=== PATIENT | male | born 1940 | race Caucasian/White ===

== ENCOUNTER → 2020-12-04 | Outpatient (CLI) | payer MEDICARE ==
[~2020-12-04] MED LIST: GLIP10TA24 PO; LISI20TA18 PO; METF-658 PO; METO-247 PO; MULT-245 PO; MV-M1TAB7 PO; SIMV20TA18 PO; TRIA1TAB3 PO; [UNRECOGNIZED DRUG - CODE] PO
[2020-12-07 10:27] VITALS: BP 146/65
== END ==
LOC: LAB 14:54
PROVIDERS: ATTEND Ophthalmology
DX: Z01.812 Encounter for preprocedural laboratory examination (principal); Z20.822 Contact with and (suspected) exposure to COVID-19
CPT/HCPCS: C9803; U0003

== ENCOUNTER → 2020-12-07 | Day surgery (SDC) | payer MEDICARE ==
[~2020-12-07] MED LIST changes: +ACETAMINOPHEN 500 MG TABLET PO PRN; +BALANCED SALT IRRIG SOLN NO.2 500 ML IO ONE; +BENZONATATE 100 MG CAPSULE. PO PRN; +BRIMONIDINE 0.2% OPHTH SOLUTION 5ML BOTTLE. OD ONE; +CEFUROXIME OPHTH 4 MG/0.4 ML SYRINGE. OD ONE; +CHONDROIT-SOD-HYALURONATE KIT. OD ONE; +IBUPROFEN 200 MG TABLET PO PRN; +IPRATRPIUM/ALBUTEROL 0.5/2.5MG 3 ML NEBU. NEB PRN; +IV RINGERS SOLUTION,LACTATED 1,000 ML IV SCH; +LIDO/EPI IN BSS OPHTH 2.7 ML SYRINGE. OD ONE; +MIDAZOLAM HCL PF 2 MG/2 ML VIAL. IV ONE; +MIDAZOLAM HCL PF 2 MG/2 ML VIAL. ONE; +ONDANSETRON PF 4 MG/2 ML VIAL. IV PRN; +PHENYLEPHRINE 10% OPHTH SOLUTION 5ML BOTTLE. OD PRN; +POVIDONE-IODINE 5% OPHTH SOLUTION 30ML BOTTLE. OD ONE; +POVIDONE-IODINE 5% OPHTH SOLUTION 30ML BOTTLE. OD PRN; +PROPARACAINE 0.5% OPHTH SOLUTION 15ML BOTTLE. OD ONE; +PROPARACAINE 0.5% OPHTH SOLUTION 15ML BOTTLE. OD PRN; +prednisoLONE ACETATE 1% OPHTH SUSPENSION 5ML BOTTLE. OD ONE
[2020-12-07] MEDS: TROPICAMIDE 1% OPHTH SOLUTION 15ML BOTTLE. OD SCH ×3 (08:46→08:58)
[2020-12-07] MEDS: PHENYLEPHRINE 2.5% OPHTH SOLUTION 2ML BOTTLE. OD SCH ×3 (08:46→08:58)
[2020-12-07] MEDS: KETOROLAC TROMETHAMINE 0.5% OPHTH SOLUTION BOTTLE. OD SCH ×2 (08:47→08:53)
[2020-12-07] MEDS: TOBRAMYCIN 0.3% OPHTH SOLUTION 5ML BOTTLE. OD SCH ×2 (08:47→08:53)
--- NOTE | 2020-12-07 10:17 | PDOC4 ---
SURGEON: Nicolas Sullivan MD Date of Procedure: 12/07/20 PREOP Diagnosis Visually significant cataract: Right Eye OD POSTOP Diagnosis Same PROCEDURE: Phaco w/ posterior chamber IOL: Right Eye OD ANESTHESIA Deep forniceal periocular 2% Lidocaine jelly [place]/retro bulbar block with 2% Lidocaine with 0.5% Marcaine DESCRIPTION OF PROCEDURE The risks, benefits, and alternatives were discussed with the patient who elected to proceed. Informed consent was obtained in writing and placed in the chart After anesthetizing the eye topically, the patient was taken to the operating room, and the operative eye was prepped and draped in the usual sterile fashion for ocular surgery. A wire lid speculum was placed. A 1-mm clear corneal paracentesis incision was created with the side-port blade at a position three o'clock hours clockwise from the temporal cornea. Then, 1% non-preserved Lidocaine with epinephrine was injected into the anterior chamber followed by viscoelastic. Cotton-tipped applicators were used to stabilize the globe, and a 2.4 mm keratome was used to create a self-sealing incision in clear cornea at the temporal limbus. The Utrata forceps were used to create a continuous curvilinear capsulorrhexis. Balanced saline solution was injected via cannula beneath the capsulorrhexis edge to hydrodissect the lens nucleus and cortex from the lens capsule. The phacoemulsification handpiece and a chopping instrument were then used to remove the lens nucleus. The remaining epinuclear material and cortex were removed with the irrigation/aspiration handpiece. Viscoelastic was used to re-inflate the lens capsule, and the intraocular lens was injected directly into the capsular bag. The corneal wound edges were hydrated with balanced salt solution on a cannula and the irrigation/aspiration handpiece was used to extract the remaining viscoelastic. Cefuroxime 0.1mg/ml / Vigamox 0.5% was injected into the anterior chamber intracamerally. The wounds were inspected and found to be watertight at an appropriate intraocular pressure. Topical antibiotic drops were placed on the corneal surface. LRI: No If Yes, Number [] [place] [] Length [] degrees Depth [] microns Incision [place]: 180 Toric Lens [place] [] Patch/shield with Maxitrol/Tobradex/Erythromycin ointment: Yes No Co-managed patients/postop examination stable for co-management with referring doctor. EBL EBL: None SPECIMANS COLLECTED Specimens Collected: None NICOLAS SULLIVAN MD Dec 07, 2020 10:17
[2020-12-07 10:27] VITALS: BP 146/65
== END | disposition home or self-care (01) ==
LOC: SURG 08:32
PROVIDERS: ATTEND Ophthalmology
DX: E11.36 Type 2 diabetes mellitus with diabetic cataract (principal); H25.11 Age-related nuclear cataract, right eye; I10 Essential (primary) hypertension; Z98.890 Other specified postprocedural states; Z79.899 Other long term (current) drug therapy; Z91.040 Latex allergy status; Z88.0 Allergy status to penicillin
CPT/HCPCS: 66984; 82947; J2250; V2632

== ENCOUNTER → 2020-12-18 | Outpatient (CLI) | payer MEDICARE ==
[2020-12-07 10:27] VITALS: BP 146/65
[~2020-12-18] MED LIST changes: -ACETAMINOPHEN 500 MG TABLET PO PRN; -BALANCED SALT IRRIG SOLN NO.2 500 ML IO ONE; -BENZONATATE 100 MG CAPSULE. PO PRN; -BRIMONIDINE 0.2% OPHTH SOLUTION 5ML BOTTLE. OD ONE; -CEFUROXIME OPHTH 4 MG/0.4 ML SYRINGE. OD ONE; -CHONDROIT-SOD-HYALURONATE KIT. OD ONE; -IBUPROFEN 200 MG TABLET PO PRN; -IPRATRPIUM/ALBUTEROL 0.5/2.5MG 3 ML NEBU. NEB PRN; -IV RINGERS SOLUTION,LACTATED 1,000 ML IV SCH; -LIDO/EPI IN BSS OPHTH 2.7 ML SYRINGE. OD ONE; -MIDAZOLAM HCL PF 2 MG/2 ML VIAL. IV ONE; -MIDAZOLAM HCL PF 2 MG/2 ML VIAL. ONE; -ONDANSETRON PF 4 MG/2 ML VIAL. IV PRN; -PHENYLEPHRINE 10% OPHTH SOLUTION 5ML BOTTLE. OD PRN; -POVIDONE-IODINE 5% OPHTH SOLUTION 30ML BOTTLE. OD ONE; -POVIDONE-IODINE 5% OPHTH SOLUTION 30ML BOTTLE. OD PRN; -PROPARACAINE 0.5% OPHTH SOLUTION 15ML BOTTLE. OD ONE; -PROPARACAINE 0.5% OPHTH SOLUTION 15ML BOTTLE. OD PRN; -prednisoLONE ACETATE 1% OPHTH SUSPENSION 5ML BOTTLE. OD ONE
== END ==
LOC: LAB 11:23
PROVIDERS: ATTEND Ophthalmology
DX: Z01.812 Encounter for preprocedural laboratory examination (principal); Z20.822 Contact with and (suspected) exposure to COVID-19
CPT/HCPCS: U0003

== ENCOUNTER → 2020-12-21 | Day surgery (SDC) | payer MEDICARE ==
[~2020-12-21] MED LIST changes: +ACETAMINOPHEN 500 MG TABLET PO PRN; +BALANCED SALT IRRIG SOLN NO.2 500 ML IO ONE; +BENZONATATE 100 MG CAPSULE. PO PRN; +BRIMONIDINE 0.2% OPHTH SOLUTION 5ML BOTTLE. OS ONE; +CEFUROXIME OPHTH 4 MG/0.4 ML SYRINGE. OS ONE; +CHONDROIT-SOD-HYALURONATE KIT. OS ONE; +IBUPROFEN 200 MG TABLET PO PRN; +IPRATRPIUM/ALBUTEROL 0.5/2.5MG 3 ML NEBU. NEB PRN; +IV RINGERS SOLUTION,LACTATED 1,000 ML IV SCH; +LIDO/EPI IN BSS OPHTH 2.7 ML SYRINGE. OS ONE; +LIDOCAINE 2% JELLY 6ML IN APPLICATOR. ONE; +MIDAZOLAM HCL PF 2 MG/2 ML VIAL. IV ONE; +MIDAZOLAM HCL PF 2 MG/2 ML VIAL. ONE; +ONDANSETRON PF 4 MG/2 ML VIAL. IV PRN; +PHENYLEPHRINE 10% OPHTH SOLUTION 5ML BOTTLE. OS PRN; +POVIDONE-IODINE 5% OPHTH SOLUTION 30ML BOTTLE. OS ONE; +POVIDONE-IODINE 5% OPHTH SOLUTION 30ML BOTTLE. OS PRN; +PROPARACAINE 0.5% OPHTH SOLUTION 15ML BOTTLE. OS ONE; +PROPARACAINE 0.5% OPHTH SOLUTION 15ML BOTTLE. OS PRN; +prednisoLONE ACETATE 1% OPHTH SUSPENSION 5ML BOTTLE. OS ONE
[2020-12-21] MEDS: PHENYLEPHRINE 2.5% OPHTH SOLUTION 2ML BOTTLE. OS SCH ×3 (08:57→09:06)
[2020-12-21] MEDS: KETOROLAC TROMETHAMINE 0.5% OPHTH SOLUTION BOTTLE. OS SCH ×2 (08:57→09:03)
[2020-12-21] MEDS: TROPICAMIDE 1% OPHTH SOLUTION 15ML BOTTLE. OS SCH ×3 (08:57→09:06)
[2020-12-21] MEDS: TOBRAMYCIN 0.3% OPHTH SOLUTION 5ML BOTTLE. OS SCH ×2 (08:57→09:02)
--- NOTE | 2020-12-21 10:25 | PDOC4 ---
SURGEON: Nicolas Sullivan MD Date of Procedure: 12/21/20 PREOP Diagnosis Visually significant cataract: Left Eye OS POSTOP Diagnosis Same PROCEDURE: Phaco w/ posterior chamber IOL: Left Eye OS ANESTHESIA Deep forniceal periocular 2% Lidocaine jelly [place]/retro bulbar block with 2% Lidocaine with 0.5% Marcaine DESCRIPTION OF PROCEDURE The risks, benefits, and alternatives were discussed with the patient who elected to proceed. Informed consent was obtained in writing and placed in the chart After anesthetizing the eye topically, the patient was taken to the operating room, and the operative eye was prepped and draped in the usual sterile fashion for ocular surgery. A wire lid speculum was placed. A 1-mm clear corneal paracentesis incision was created with the side-port blade at a position three o'clock hours clockwise from the temporal cornea. Then, 1% non-preserved Lidocaine with epinephrine was injected into the anterior chamber followed by viscoelastic. Cotton-tipped applicators were used to stabilize the globe, and a 2.4 mm keratome was used to create a self-sealing incision in clear cornea at the temporal limbus. The Utrata forceps were used to create a continuous curvilinear capsulorrhexis. Balanced saline solution was injected via cannula beneath the capsulorrhexis edge to hydrodissect the lens nucleus and cortex from the lens capsule. The phacoemulsification handpiece and a chopping instrument were then used to remove the lens nucleus. The remaining epinuclear material and cortex were removed with the irrigation/aspiration handpiece. Vi scoelastic was used to re-inflate the lens capsule, and the intraocular lens was injected directly into the capsular bag. The corneal wound edges were hydrated with balanced salt solution on a cannula and the irrigation/aspiration handpiece was used to extract the remaining viscoelastic. Cefuroxime 0.1mg/ml / Vigamox 0.5% was injected into the anterior chamber intracamerally. The wounds were inspected and found to be watertight at an appropriate intraocular pressure. Topical antibiotic drops were placed on the corneal surface. LRI: No If Yes, Number [] [place] [] Length [] degrees Depth [] microns Incision [place]: 180 Toric Lens [place] [] Patch/shield with Maxitrol/Tobradex/Erythromycin ointment: Yes No Co-managed patients/postop examination stable for co-management with referring doctor. EBL EBL: None SPECIMANS COLLECTED Specimens Collected: None NICOLAS SULLIVAN MD Dec 21, 2020 10:25
[2020-12-21 10:35] VITALS: BP 147/64
== END | disposition home or self-care (01) ==
LOC: SURG 08:28
PROVIDERS: ATTEND Ophthalmology
DX: E11.36 Type 2 diabetes mellitus with diabetic cataract (principal); H25.12 Age-related nuclear cataract, left eye; I10 Essential (primary) hypertension; Z98.890 Other specified postprocedural states; Z79.899 Other long term (current) drug therapy; Z87.891 Personal history of nicotine dependence; Z95.1 Presence of aortocoronary bypass graft
CPT/HCPCS: 66984; 82947; J2250; V2632

== ENCOUNTER 2021-01-20 20:24 | Emergency (ER) | payer MEDICARE ==
[~2021-01-20] VITALS: Ht 177.8 cm; Wt 111.2 kg
[~2021-01-20 20:24] MED LIST changes: -ACETAMINOPHEN 500 MG TABLET PO PRN; -BALANCED SALT IRRIG SOLN NO.2 500 ML IO ONE; -BENZONATATE 100 MG CAPSULE. PO PRN; -BRIMONIDINE 0.2% OPHTH SOLUTION 5ML BOTTLE. OS ONE; -CEFUROXIME OPHTH 4 MG/0.4 ML SYRINGE. OS ONE; -CHONDROIT-SOD-HYALURONATE KIT. OS ONE; -IBUPROFEN 200 MG TABLET PO PRN; -IPRATRPIUM/ALBUTEROL 0.5/2.5MG 3 ML NEBU. NEB PRN; -IV RINGERS SOLUTION,LACTATED 1,000 ML IV SCH; -LIDO/EPI IN BSS OPHTH 2.7 ML SYRINGE. OS ONE; -LIDOCAINE 2% JELLY 6ML IN APPLICATOR. ONE; -MIDAZOLAM HCL PF 2 MG/2 ML VIAL. IV ONE; -MIDAZOLAM HCL PF 2 MG/2 ML VIAL. ONE; -ONDANSETRON PF 4 MG/2 ML VIAL. IV PRN; -PHENYLEPHRINE 10% OPHTH SOLUTION 5ML BOTTLE. OS PRN; -POVIDONE-IODINE 5% OPHTH SOLUTION 30ML BOTTLE. OS ONE; -POVIDONE-IODINE 5% OPHTH SOLUTION 30ML BOTTLE. OS PRN; -PROPARACAINE 0.5% OPHTH SOLUTION 15ML BOTTLE. OS ONE; -PROPARACAINE 0.5% OPHTH SOLUTION 15ML BOTTLE. OS PRN; -prednisoLONE ACETATE 1% OPHTH SUSPENSION 5ML BOTTLE. OS ONE
--- NOTE | 2021-01-20 20:52 | RAD ---
PQRS Compliance Statement: One or more of the following individualized dose reduction techniques were utilized for this examinat ion: 1. Automated exposure control 2. Adjustment of the mA and/or kV according to patient size 3. Use of iterative reconstruction technique CT head and cervical spine without contrast 01/20/2021 8:35 PM INDICATION: Right-sided facial droop. COMPARISON: None available TECHNIQUE: Multiple axial CT images of the head were obtained from skull base through the vertex with out intravenous contrast. Multiple axial CT images of the cervical spine were obtained with intraveno us contrast. Coronal and sagittal reformats are provided. FINDINGS: Head: There is a right for head scalp hematoma measuring 1.0 cm in thickness. There is a subdural hematoma along the falx measuring up to 3 mm asymmetric to the left. Ventricles, sulci and basal cisterns are prominent compatible with mild generalized cerebral volume l oss. There is no hydrocephalus. Zamora-white matter differentiation is normal. There is no mass, mass e ffect or midline shift. Posterior fossa is normal in appearance. Visualized portions of the orbits are normal with exception of bilateral lens replacement. Paranasal sinuses are well aerated. Mastoid air cells are well aerated. Cervical spine: Alignment of the cervical spine is normal. Vertebral body heights are maintained. No acute fracture i s identified. There is moderate to advanced disc height loss at C3-C4, C5-C6 and C6-C7. Degenerative changes are identified at the atlantoaxial articulation with thickening of the transverse ligament. P osterior fossa is normal in appearance. Skull base is intact. At C2-C3, there is a posterior disc osteophyte complex. Severe facet arthropathy with mild uncoverteb ral joint disease resulting in moderate bilateral neuroforaminal stenosis. At C3-C4, there is a posterior disc osteophyte complex with severe right and moderate left facet arth ropathy and mild uncovertebral joint disease resulting in moderate right and mild left foraminal sten osis and mild osseous canal stenosis. At C4-C5, there is a mild disc bulge. Moderate facet and uncovertebral joint disease with mild bilate ral neuroforaminal stenosis. At C5-C6, there is a posterior disc osteophyte complex with calcified left central disc extrusion. Mo derate facet arthropathy. Severe left and moderate joint disease. Moderate left and mild right neural foraminal stenosis. Moderate spinal canal stenosis. At C6-C7, there is a posterior disc osteophyte complex. Mild facet arthropathy. Moderate uncovertebra l joint disease. Mild to moderate left neuroforaminal stenosis. Mild osseous spinal canal stenosis. There is no compressive epidural hematoma. No paraspinal soft tissue abnormality. Thyroid gland is no rmal in appearance. IMPRESSION: 1. There is a subdural hematoma along the falx measuring 3 mm without significant midline shift or ma ss effect. Next on 2. Mild generalized cerebral volume loss. Low-attenuation in the periventricular white matter is sugg estive of chronic small vessel ischemic changes. 3. No acute fracture or malalignment of the cervical spine. Moderate cervical spondylosis. Electronically signed by: Xena Snider MD (01/20/2021 8:49 PM) ARNULFO
--- NOTE | 2021-01-20 21:14 | PHYS DOC ---
Past History Past Surgical History: Appendectomy, Coronary Bypass Surgery (ROSIE COLEY TEST SKEIN WINDER) Alcohol Use: None (ROSIE COLEY TEST SKEIN WINDER) Adult General Chief Complaint Chief Complaint: MECHANICAL FALL HPI HPI Patient is a male with history of diabetes type 2, hypertension, high cholesterol, [place], who presents the ED today to be evaluated after falling. Report is being obtained from the RN as well as EMS, they state patient was walking into his house, he got dizzy and hit his head on a brick wall and fell. It is unknown if he had any loss of consciousness. Upon EMS arrival patient was was slumped over the toilet, nonverbal, he had right-sided facial droop and right-sided weakness. EMS reports when they got him into their truck patient started talking, his right-sided facial droop and right-sided weakness had subsided. Patient is in the ED alert and oriented to self and confused to everything else. He is complaining of right shoulder pain. He states he used to be on Eliquis but currently only takes aspirin, unknown milligram. (ROSIE COLEY TEST SKEIN WINDER) Review of Systems Review of Systems Constitutional: Denies fever or chills [] Eyes: Denies change in visual acuity, redness, or eye pain [] HENT: Denies nasal congestion or sore throat [] Respiratory: Denies cough or shortness of breath [] Cardiovascular: No additional information not addressed in HPI [] GI: Denies abdominal pain, nausea, vomiting, bloody stools or diarrhea [] : Denies dysuria or hematuria [] Musculoskeletal: Denies back pain or joint pain [] Integument: Right forehead contusion Neurologic: EMS reports falling, hitting his head, right-sided facial droop and weakness which has subsided. All other systems were reviewed and found to be within normal limits, except as documented in this note. (ROSIE COLEY TEST SKEIN WINDER) Allergies Allergies Allergies Coded Allergies Type Severity Reaction Last Updated Verified Penicillins Allergy Intermediate rash 12/21/20 Yes (ROSIE COLEY APRN) Physical Exam Physical Exam Constitutional: Well developed, well nourished, no acute distress, non-toxic appearance. [] HENT: Normocephalic,bilateral external ears normal, oropharynx moist, no oral exudates, nose normal. [] Eyes: PERRLA, EOMI, conjunctiva normal, no discharge. [] Neck: Normal range of motion, no tenderness, supple, no stridor. [] Cardiovascular:Heart rate regular rhythm Lungs & Thorax: Bilateral breath sounds clear to auscultation [] Abdomen: Bowel sounds normal, soft, no tenderness, no masses, no pulsatile masses. [] Skin: Right forehead with a mild side contusion, bruising to the right cheek. Back: No tenderness, no CVA tenderness. [] Extremities: Right upper extremity with no obvious deformity but tenderness on palpation of the right shoulder, limited range of motion to the right upper extremity specifically shoulder due to pain. Equal radial, medial, ulnar sensation to the right fingers. +2 right radial pulse. Cap refill less than 2 seconds the right fingers Neurologic: Alert and oriented X 1, normal motor function, normal sensory function, no focal deficits noted. Cranial nerves II through XII intact. Psychologic: Affect normal, judgement normal, mood normal. [] (ROSIE COLEY TEST SKEIN WINDER) Current Patient Data Vital Signs Vital Signs Date Time Temp Pulse Resp B/P (MAP) Pulse Ox O2 Delivery O2 Flow Rate FiO2 01/20/21 20:58 97.7 76 18 160/58 (92) 95 Room Air (ROSIE COLEY TEST SKEIN WINDER) EKG EKG [address] Hickman sinus rhythm inverted T wave on lead III, heart rate 76 no STEMI [] (ROSIE COLEY TEST SKEIN WINDER) Radiology/Procedures Radiology/Procedures []PROCEDURE: CT HEAD AND CERVICAL SPINE WO RS Compliance Statement: One or more of the following individualized dose reduction techniques were utilized for this examination: 1. Automated exposure control 2. Adjustment of the mA and/or kV according to patient size 3. Use of iterative reconstruction technique CT head and cervical spine without contrast 01/20/2021 8:35 PM INDICATION: Right-sided facial droop. COMPARISON: None available TECHNIQUE: Multiple axial CT images of the head were obtained from skull base through the vertex without intravenous contrast. Multiple axial CT images of the cervical spine were obtained with intravenous contrast. Coronal and sagittal reformats are provided. FINDINGS: Head: There is a right for head scalp hematoma measuring 1.0 cm in thickness. There is a subdural hematoma along the falx measuring up to 3 mm asymmetric to the left. Ventricles, sulci and basal cisterns are prominent compatible with mild general ized cerebral volume loss. There is no hydrocephalus. Zamora-white matter differentiation is normal. There is no mass, mass effect or midline shift. Posterior fossa is normal in appearance. Visualized portions of the orbits are normal with exception of bilateral lens replacement. Paranasal sinuses are well aerated. Mastoid air cells are well aerated. Cervical spine: Alignment of the cervical spine is normal. Vertebral body heights are maintained. No acute fracture is identified. There is moderate to advanced disc height loss at C3-C4, C5-C6 and C6-C7. Degenerative changes are identified at the atlantoaxial articulation with thickening of the transverse ligament. Posterior fossa is normal in appearance. Skull base is intact. At C2-C3, there is a posterior disc osteophyte complex. Severe facet arthropathy with mild uncovertebral joint disease resulting in moderate bilateral neurofora alyssa stenosis. At C3-C4, there is a posterior disc osteophyte complex with severe right and moderate left facet arthropathy and mild uncovertebral joint disease resulting in moderate right and mild left foraminal stenosis and mild osseous canal stenosis. At C4-C5, there is a mild disc bulge. Moderate facet and uncovertebral joint disease with mild bilateral neuroforaminal stenosis. At C5-C6, there is a posterior disc osteophyte complex with calcified left central disc extrusion. Moderate facet arthropathy. Severe left and moderate joint disease. Moderate left and mild right neural foraminal stenosis. Moderate spinal canal stenosis. At C6-C7, there is a posterior disc osteophyte complex. Mild facet arthropathy. Moderate uncovertebral joint disease. Mild to moderate left neuroforaminal stenosis. Mild osseous spinal canal stenosis. There is no compressive epidural hematoma. No paraspinal soft tissue abnormality. Thyroid gland is normal in appearance. IMPRESSION: 1. There is a subdural hematoma along the falx measuring 3 mm without significant midline shift or mass effect. Next on 2. Mild generalized cerebral volume loss. Low-attenuation in the periventricular white matter is suggestive of chronic small vessel ischemic changes. 3. No acute fracture or malalignment of the cervical spine. Moderate cervical spondylosis. Electronically signed by: Isidoro Bernstein MD (01/20/2021 8:49 PM) [facility] DICTATED AND SIGNED BY: ISIDORO BERNSTEIN MD DATE: 01/20/212042 CC: BHAVIK SINGER MD; EMERGENCY,DEPARTMENT; ROSIE COLEY SHIKHA ~MTH0 0 (ROSIE COLEY SHIKHA) Heart Score C/O Chest Pain: N/A Risk Factors: Risk Factors: DM, Current or recent (<one month) smoker, HTN, HLP, family history of CAD, obesity. Risk Scores: Risk Factors: DM, Current or recent (<one month) smoker, HTN, HLP, family history of CAD, obesity. (ROSIE COLEY SHIKHA) Course & Med Decision Making Course & Med Decision Making Pertinent Labs and Imaging studies reviewed. (See chart for details) This is a 80-year-old male patient presenting to the ED today to be evaluated after falling. See HPI. Patient hit his head on a brick wall. Unable to obtain an accurate stroke scale because patient is not following directions well. Also has right shoulder pain. CT of the head was obtained and noted for a subdural hematoma along the falx measuring 3 mm without significant midline shift or mass effect. Mild generalized cerebral volume loss. Low-attenuation in the periventricular white matter is suggestive of chronic small vessel ischemic changes.No acute fracture or malalignment of the cervical spine. Moderate cervical spondylosis. Spoke with Cristal JACOB for neurosurgery at [place], she requested patient to be transferred to [facility] ICU. Patient accepted by Dr. Vo at [facility] (ROSIE COLEY José TRIVEDI) Course & Med Decision Making Did not see or evaluate patient. Did not discuss patient with CLIENT ADMINISTRATOR. Agree with CLIENT ADMINISTRATOR's work-up and disposition per note (ROYA HICKMAN MD) Dragon Disclaimer Dragon Disclaimer This electronic medical record was generated, in whole or in part, using a voice recognition dictation system. (ROSIE COLEY APRN) Departure Departure: Impression: Primary Impression: Subdural hematoma Additional Impressions: Right shoulder pain Facial contusion Disposition: SHORT TERM HOSPITAL Referrals: BHAVIK SINGER MD (PCP) Problem Qualifiers Additional Impressions: Right shoulder pain Chronicity: acute Qualified Codes: M25.511 - Pain in right shoulder Facial contusion Encounter type: initial encounter Qualified Codes: S00.83XA - Contusion of other part of head, initial encounter ROSIE COLEY APRN Jan 20, 2021 21:14 ROYA HICKMAN MD Jan 20, 2021 23:13
[2021-01-20 21:42] LABS: BASO # 0.1 x10^3/uL (0.0-0.2); BASO % 1 % (0-3); EOS # 0.2 x10^3/uL (0.0-0.7); EOS % 2 % (0-3); HEMATOCRIT 45.7 % (39.0-53.0); HEMOGLOBIN 15.3 g/dL (13.0-17.5); LYMPH # 3.2 x10^3/uL (1.0-4.8); LYMPH % 22 % (24-48); MEAN CORPUSCULAR HEMOGLOBIN 31 pg (25-35); MEAN CORPUSCULAR HGB CONC 33 g/dL (31-37); MEAN CORPUSCULAR VOLUME 92 fL (79-100); MONO % 7 % (0-9); NEUT # 9.8 x10^3uL (1.8-7.7); NEUT % 68 % (31-73); PLATELET COUNT 215 x10^3/uL (140-400); RED BLOOD COUNT 4.96 x10^6/uL (4.30-5.70); RED CELL DISTRIBUTION WIDTH 14.3 % (11.5-14.5); WHITE BLOOD COUNT 14.3 x10^3/uL (4.0-11.0)
[2021-01-20 21:49] LABS: CALCIUM 9.3 mg/dL (8.5-10.1); CREATININE 1.7 mg/dL (0.7-1.3); GFR 39.2; POTASSIUM 4.3 mmol/L (3.5-5.1)
--- NOTE | 2021-01-20 21:56 | EKG ---
[address] [address] Test Date: 2021-01-20 Test Time: 21:18:06 Pat Name: MAIRA ZARATE Department: Room: Gender: M Social Welfare Administrator: : 1940 Requested By: ROSIE COLEY Order Number: [id number] Reading MD: Measurements Intervals [place] Rate: 76 P: 24 [place]: 160 QRS: 38 QRSD: 88 T: -21 QT: 364 QTc: 414 Interpretive Statements SINUS RHYTHM T ABNORMALITY IN INFERIOR LEADS ABNORMAL ECG RI6.02 No previous ECG available for comparison
[2021-01-20 22:05] LABS: ALBUMIN 3.9 g/dL (3.4-5.0); MAGNESIUM 2.2 mg/dL (1.8-2.4); TOTAL BILIRUBIN 0.6 mg/dL (0.2-1.0); TOTAL PROTEIN 7.7 g/dL (6.4-8.2)
--- NOTE | 2021-01-20 22:09 | EKG ---
[address] [address] Test Date: 2021-01-20 Test Time: 22:01:56 Pat Name: MAIRA ZARATE Department: Room: Gender: M Sanitary Engineer: : 1940 Requested By: ROSIE COLEY Order Number: [id number] Reading MD: Measurements Intervals [place] Rate: 79 P: 38 [place]: 188 QRS: 40 QRSD: 88 T: -23 QT: 360 QTc: 414 Interpretive Statements SINUS RHYTHM T ABNORMALITY IN INFERIOR LEADS ABNORMAL ECG RI6.02 No previous ECG available for comparison
--- NOTE | 2021-01-20 22:14 | RAD ---
XR SHOULDER_RIGHT 2+ VIEWS 01/20/2021 9:05 PM INDICATION: Fall today, right shoulder pain COMPARISON: None available. TECHNIQUE: 3 views of the right shoulder are provided. FINDINGS/ IMPRESSION: There is no acute fracture or dislocation. Moderate acromioclavicular osteoarthrosis. Mild to moderat e glenohumeral osteoarthrosis with joint space narrowing marginal osteophytosis. Bone mineralization is within normal limits. Regional soft tissues are within normal limits. There is no soft tissue gas or osseous erosion. No radiopaque foreign body. Electronically signed by: Xena Snider MD (01/20/2021 10:11 PM) RODDY
--- NOTE | 2021-01-20 22:14 | RAD ---
XR CHEST 1V 01/20/2021 9:05 PM INDICATION: Fall today, chest pain COMPARISON: None available TECHNIQUE: Portable frontal view of the chest is provided. FINDINGS: The cardiomediastinal silhouette is within normal limits. Lungs are clear. Median sternotomy changes are present. There are no significant pleural effusions. There is no pulmonary vascular congestion. No pneumothora x. No suspicious osseous abnormality. IMPRESSION: There is no acute cardiopulmonary process. Electronically signed by: Xena Snider MD (01/20/2021 10:12 PM) [facility]
[2021-01-21 00:24] VITALS: BP 126/65
== END 2021-01-21 00:31 | disposition short-term general hospital (02) ==
LOC: ER 20:24
DX: S06.5X9A Traumatic subdural hemorrhage with loss of consciousness of unspecified duration, initial encounter (principal); S00.83XA Contusion of other part of head, initial encounter; M25.511 Pain in right shoulder; E11.9 Type 2 diabetes mellitus without complications; I10 Essential (primary) hypertension; E78.00 Pure hypercholesterolemia, unspecified; I25.2 Old myocardial infarction; Z95.1 Presence of aortocoronary bypass graft; Z88.0 Allergy status to penicillin; W18.39XA Other fall on same level, initial encounter; Y93.01 Activity, walking, marching and hiking; Y92.89 Other specified places as the place of occurrence of the external cause; Y99.8 Other external cause status
CPT/HCPCS: 36415; 70450; 71045; 72125; 73030; 80053; 82553; 83605; 83735; 83880; 85025; 85610; 85730; 87426; 93005; 99285; C9803; U0003